=== PATIENT | male | born 1980 | race Two or more races ===

== ENCOUNTER 2018-02-26 00:06 | Emergency (ER) | payer OTHER ==
[2018-02-26] MEDS: SOD CHLORIDE 0.9% 1,000 ML IV (02:39)
[2018-02-26] MEDS: IPRATROPIUM (NEB) 0.5 MG/2.5 ML AMP NEB (02:42)
[2018-02-26] MEDS: ALBUTEROL 0.083% (NEB) 2.5 MG/3 ML AMP NEB (02:42)
[2018-02-26 02:43] LABS: ADD MAN DIFF? NO
[2018-02-26] MEDS: METHYLPREDNISOLONE 125 MG INJ IV (02:43)
[2018-02-26 02:47] LABS: WHITE BLOOD COUNT 6.5 10^3/ul (4.8-10.8)
[2018-02-26 02:47] LABS: BASOPHIL # 0.1 10^3/ul (0.0-0.1); BASOPHILS % 1.5 % (0.0-2.0); EOSINOPHILS # 0.9 10^3/ul (0.0-0.5); EOSINOPHILS % 14.4 % (0.0-7.0); HEMATOCRIT 43.8 % (42.0-52.0); HEMOGLOBIN 15.9 g/dl (14.0-18.0); LYMPHOCYTES # 2.6 10^3/ul (0.8-2.9); LYMPHOCYTES % 40.2 % (15.0-51.0); MEAN CORPUSCULAR HEMOGLOBIN 32.6 pg (29.0-33.0); MEAN CORPUSCULAR HGB CONC 36.3 g/dl (32.0-37.0); MEAN CORPUSCULAR VOLUME 89.9 fl (82.0-101.0); MEAN PLATELET VOLUME 10.1 fl (7.4-10.4); MONOCYTE # 0.6 10^3/ul (0.3-0.9); MONOCYTES % 9.3 % (0.0-11.0); NEUTROPHIL # 2.2 10^3/ul (1.6-7.5); NEUTROPHILS % 34.3 % (39.0-77.0); PLATELET COUNT 255 10^3/UL (140-415); RED BLOOD COUNT 4.87 10^6/ul (4.70-6.10); RED CELL DISTRIBUTION WIDTH 11.9 % (11.5-14.5)
[2018-02-26 02:59] LABS: ADD UMIC NO; UR AMORPHOUS CRYSTAL FEW /HPF (NONE SEEN); UR ASCORBIC ACID NEGATIVE (NEGATIVE); UR BILIRUBIN (Dip) NEGATIVE (NEGATIVE); UR BLOOD (Dip) NEGATIVE (NEGATIVE); UR CLARITY SLIGHTLY CLOUDY (CLEAR); UR COLOR YELLOW (YELLOW); UR GLUCOSE (Dip) NEGATIVE (NEGATIVE); UR KETONES (Dip) NEGATIVE (NEGATIVE); UR LEUKOCYTE ESTERASE (Dip) NEGATIVE Leu/ul (NEGATIVE); UR MUCUS MANY /HPF (NONE SEEN); UR NITRITE (Dip) NEGATIVE (NEGATIVE); UR RBC 0 /HPF (0-5); UR TOTAL PROTEIN (Dip) NEGATIVE (NEGATIVE); UR UROBILINOGEN (Dip) NEGATIVE (NEGATIVE); UR WBC 1 /HPF (0-5)
[2018-02-26 03:02] LABS: INR 1.04; PROTIME 13.7 Sec (11.9-14.9); PT RATIO 1.1
[2018-02-26 03:03] LABS: PARTIAL THROMBOPLASTIN TIME 33.5 Sec (25.0-35.0)
[2018-02-26 03:05] LABS: ALANINE AMINOTRANSFERASE 57 IU/L (13-69); ALBUMIN 4.6 g/dl (3.3-4.9); ALBUMIN/GLOBULIN RATIO 1.43; ALKALINE PHOSPHATASE 77 IU/L (42-121); ANION GAP 17 (8-16); ASPARTATE AMINO TRANSFERASE 46 IU/L (15-46); BILIRUBIN,INDIRECT 0.3 mg/dl (0-1.1); BILIRUBIN,TOTAL 0.3 mg/dl (0.2-1.3); BLOOD UREA NITROGEN 15 mg/dl (7-20); CALCIUM 9.5 mg/dl (8.4-10.2); CARBON DIOXIDE 26 mmol/L (21-31); CHLORIDE 105 mmol/L (97-110); CREATININE 0.95 mg/dl (0.61-1.24); GLUCOSE 81 mg/dl (70-220); LIPASE 79 U/L (23-300); SODIUM 144 mmol/L (135-144); TOTAL PROTEIN 7.8 g/dl (6.1-8.1)
== END 2018-02-26 05:32 | disposition home or self-care (01) ==
LOC: FTE 00:06
DX: J45.901 Unspecified asthma with (acute) exacerbation (principal); R10.9 Unspecified abdominal pain
CPT/HCPCS: 36415; 71045; 74176; 76705; 80053; 81001; 81003; 83690; 85025; 85610; 85730; 94644; 96361; 96374; 99285-25